=== PATIENT | female | born 1990 | race American Indian/Alaskan Native ===

== ENCOUNTER 2019-09-30 14:03 | Emergency (ER) | payer OTHER ==
[2019-09-30 14:07] VITALS: BP 130/85
--- NOTE | 2019-09-30 15:12 | Emergency Department Report ---
ED Lower Extremity HPI - General Chief Complaint: Extremity Injury, Lower Stated Complaint: RT TOE PAIN Time Seen by Provider: 09/30/19 14:32 Source: patient Mode of arrival: Ambulatory Limitations: No Limitations - History of Present Illness Initial Comments: This is a 29-year-old -[place] female who presents to the emergency room with decreased range of motion and swelling to the second right toe. Patient states she was cleaning up at home when a coconut oil can fell onto her right foot around 11 AM this morning. She reports swelling and pain to distal second right toe. Reports pain is worse with weightbearing, palpation, or movement. MD Complaint: foot injury (right 2nd toe ) -: This morning Time: 11:00 Injury: Foot: Right (Second distal toe) Type of Injury: blunt Place: home Severity scale (0 -10): 6 Improves With: nothing Worsens With: weight bearing, movement, palpation Context: direct blow Associated Symptoms: swelling, able to partially bear weight, ambulatory. denies: numbness, tingling - Related Data Allergies Allergy/AdvReac Type Severity Reaction Status Date / Time No Known Allergies Allergy Unverified 09/30/19 14:06 ED Review of Systems ROS: Stated complaint: RT TOE PAIN Other details as noted in HPI Constitutional: denies: chills, fever Respiratory: denies: cough, shortness of breath, wheezing Cardiovascular: denies: chest pain, palpitations Gastrointestinal: denies: abdominal pain, nausea, diarrhea Musculoskeletal: arthralgia (Right second distal toe swelling and pain). denies: back pain, joint swelling Skin: denies: rash, lesions Neurological: denies: headache, weakness, paresthesias Psychiatric: denies: anxiety, depression ED Past Medical Hx - Past Medical History Previous Medical History?: No - Surgical History Past Surgical History?: No - Social History Smoking Status: Never Smoker Substance Use Type: None ED Physical Exam - General Limitations: No Limitations General appearance: alert, in no apparent distress, obese - Respiratory Respiratory exam: Present: normal lung sounds bilaterally. Absent: respiratory distress - Cardiovascular Cardiovascular Exam: Present: regular rate, normal rhythm. Absent: systolic murmur, diastolic murmur, rubs, gallop - GI/Abdominal GI/Abdominal exam: Present: soft, normal bowel sounds - Extremities Exam Extremities exam: Present: normal inspection - Expanded Lower Extremity Exam Right Hip exam: Present: normal inspection, full ROM Upper Leg exam: Present: normal inspection, full ROM Knee exam: Present: normal inspection, full ROM Lower Leg exam: Present: normal inspection, full ROM Ankle exam: Present: normal inspection, full ROM Foot/Toe exam: Present: tenderness (Tenderness and swelling to second DIP, limited passive and active range of motion), swelling, abrasion, erythema. Ab sent: full ROM (Limited range of motion secondary to pain), laceration, ecchymosis, deformity, crepidus, dislocation, puncture wound, subungual hematoma Neuro vascular tendon exam: Present: no vascular compromise Gait: Positive: observed and limited by pain - Neurological Exam Neurological exam: Present: alert, oriented X3 - Psychiatric Psychiatric exam: Present: normal affect, normal mood - Skin Skin exam: Present: warm, dry, intact, normal color. Absent: rash ED Course Vital Signs 09/30/19 14:06 Temperature 98.4 F Pulse Rate 65 Respiratory 16 Rate Blood Pressure 130/85 [Right] O2 Sat by Pulse 98 Oximetry ED Lower Extremity MDM - Radiology Data Radiology results: report reviewed Right second toe, 3 views INDICATION: Pain following injury today FINDINGS: The toe is intact with no fracture or dislocation seen. - Medical Decision Making This is a 29-year-old female who presents to the emergency room with decreased range of motion, swelling, and pain to second right distal phalanx. Vitals are stable and patient in no acute distress. There is a limited range of motion secondary to pain to right second distal phalanx with mild swelling and erythema. Work-up: X-ray of right toes. The toe is intact with no fracture or dislocation seen. This is most likely a sprain toe. The second toe was sabrina taped to the second toe. Patient given rice therapy instructions. Instructed to take [id number] NSAIDs for comfort. Referral to PCP for monitoring. Patient discharged home stable with strict return instructions. Critical care attestation.: If time is entered above; I have spent that time in minutes in the direct care of this critically ill patient, excluding procedure time. ED Disposition Clinical Impression: Toe pain, right Sprain of toe Qualifiers: Encounter type: initial encounter Qualified Code(s): S93.509A - Unspecified sprain of unspecified toe(s), initial encounter Disposition: TO HOME OR SELFCARE Is pt being admited?: No Condition: Stable Instructions: Foot Sprain (ED), Arthralgia (ED) Additional Instructions: Rest Use ice or heat on affected area for 20 minutes and off for 2 hours. Take [id number] pain medication every 6-8 hours as needed for pain. Follow up with Primary Care Provider in 2-3 days. Referrals: [facility] [Outside] - 3-5 Days [facility] [Outside] - 3-5 Days ERICH HWANG MD [Staff Physician] - 3-5 Days Time of Disposition: 16:09
--- NOTE | 2019-09-30 15:39 | XRay Report ---
Right second toe, 3 views INDICATION: Pain following injury today FINDINGS: The toe is intact with no fracture or dislocation seen. Signer Name: Brenton Ward MD Signed: 09/30/2019 3:35 PM Workstation Name: [id number]
== END 2019-09-30 16:38 | disposition home or self-care (01) ==
LOC: ED 14:03
DX: S96.911A Strain of unspecified muscle and tendon at ankle and foot level, right foot, initial encounter (principal); W20.8XXA Other cause of strike by thrown, projected or falling object, initial encounter; Y93.89 Activity, other specified; Y92.89 Other specified places as the place of occurrence of the external cause; Y99.8 Other external cause status
CPT/HCPCS: 99282